=== PATIENT | female | born 1955 | race Two or more races ===

== ENCOUNTER 2017-01-25 21:29 | Emergency (ER) | payer MEDICARE, MEDICAID ==
[~2017-01-25 21:29] MED LIST: ASA325 MG PO; CELEXA40 MG PO; GLUCOSAMINE HC500 MG PO; HYDROCHLOROTHIA25 MG PO; MAALOX DPS30 ML PO; MICRO-K DPS10 MEQ PO; NABUMETONE500 MG PO; NEURONTIN DPS300 MG PO; NOLVADEX DPS20 MG PO; OMEGA 3 FISH O1 EACH PO; OXY IR DPS5 MG PO; PRILOSEC40 MG PO; SENOKOT S1 TAB PO; TYLENOL DPS325 MG PO; ULTRAM DPS50 MG PO; ZOFRAN4 MG PO
--- NOTE | 2017-01-26 18:25 | ER ---
ADMIT: 01/25/2017 RM/LOC: ER [facility] MR#: [id number] [address] [address] [facility] [address] [place] [address] Emergency Room Report SEX: F AGE: 61 : 1955 DATE: 01/25/2017 Patient is a 61-year-old Vietnamese-speaking female, complaining of acute onset left arm pain, swelling, and redness associated with chronic lymphedema, status post bilateral mastectomy for breast cancer. Previous history of cellulitis. Exam remarkable for toxic appearing, afebrile female with chronic bilateral lymphedema and acute cellulitis left upper extremity. WBC 13.7, hemoglobin 11, CRP 2.39, lactic 1.8. Potassium 3.08 D-dimer 0.31. Troponin less than 0.015. The patient given Rocephin 2 g IV piggyback. Discharged with Keflex 500 mg q.i.d. x10 days. Follow up Dr. Ortez next week, strongly encouraged custom fitted compression stockings. Ilir Calvert MD/ vivian JOB #: [id number] CC: Ilir Calvert MD, Attending Physician Karla Ortez MD, Family Physician Karla Ortez MD
== END 2017-01-26 00:08 | disposition home or self-care (01) ==
LOC: ER 21:29
DX: L03.114 Cellulitis of left upper limb (principal); I10 Essential (primary) hypertension; Z79.899 Other long term (current) drug therapy

== ENCOUNTER 2017-03-08 02:16 | Emergency (ER) | payer MEDICARE, MEDICAID ==
--- NOTE | 2017-03-12 08:20 | ER ---
ADMIT: 03/08/2017 RM/LOC: [facility] MR#: [id number] [id number] [place], [place] [address] [facility]ODES [address] [place] [address] Emergency Room Report SEX: F AGE: 62 : 1955 DATE: 03/08/2017 CHIEF COMPLAINT: Redness, left arm. HISTORY OF PRESENT ILLNESS: The patient is a 62-year-old female, who is status post bilateral mastectomy with lymph node resection in her left axilla, who comes in with some redness to her left arm. It has been going on for a few hours. It feels a little warm. She does have a history of cellulitis in this arm before. She states that she does subjectively feel little warm also and might have a fever. She denies any chest pain, difficulty breathing, abdominal pain, nausea, or vomiting. She has had no change in bowel or bladder function. PAST MEDICAL HISTORY: Significant for breast cancer, status post bilateral mastectomy, hypertension, and GERD. MEDICATIONS: See nurse's note. ALLERGIES: NONE. SOCIAL HISTORY: Denies smoking, drug, or alcohol use. PHYSICAL EXAMINATION: GENERAL: The patient is alert, no distress. LUNGS: Clear to auscultation. HEART: Regular rate and rhythm. Left upper extremity reveals she does have some edema in this arm, which she states she always has some edema. There is some warmth and erythema on the forearm onto the upper arm. It is nontender. LABORATORY DATA: White count is 13.4, compared to previous white count is actually lower than the one that was done in early January. Her CRP was also done today and it is 0.32. Chemistries are unremarkable other than potassium ADMIT: 03/08/2017 RM/LOC: [facility] MR#: [id number] [address] [address] [facility] [address] [place] [address] Emergency Room Report SEX: F AGE: 62 : 1955 slightly low at 3.3 and glucose of 160. EMERGENCY DEPARTMENT COURSE: The patient was given prednisone and Benadryl because she states she did have some itching, and there is some erythema which is concerned somewhat of allergic reaction. She was given Keflex also. MEDICAL DECISION MAKING: The patient appears entirely stable. Her vital signs are stable and does not appear to be septic whatsoever. I think she does have early cellulitis on her left arm, so she is sent home with Keflex to be used q.i.d. for the next week and follow up with Dr. Ortez, who is the regular physician. She will return to the ER for any other concerning symptoms. Orville Best MD/ vivian JOB #: [id number] CC: Orville Best MD, Attending Physician Karla Ortez MD, Family Physician
== END 2017-03-08 04:05 | disposition home or self-care (01) ==
LOC: ER 02:16
DX: L03.114 Cellulitis of left upper limb (principal); I10 Essential (primary) hypertension; Z90.13 Acquired absence of bilateral breasts and nipples; Z79.899 Other long term (current) drug therapy; Z79.810 Long term (current) use of selective estrogen receptor modulators (SERMs)